=== PATIENT | female | born 1950 | race Caucasian/White ===

== ENCOUNTER 2020-05-11 15:42 | Outpatient (RCR) | payer MEDICARE, BC, SELFPAY ==
[2020-05-11] MEDS: COVID-19 VACC, MRNA(PFIZER)/PF 30 MCG/0.3 ML SYRINGE IM (10:29)
[2020-06-01] MEDS: COVID-19 VACC, MRNA(PFIZER)/PF 30 MCG/0.3 ML SYRINGE IM (10:11)
== END 2020-05-11 23:59 ==
LOC: IMMUN 15:42
PROVIDERS: PCP Internal Medicine; Visit Provider Family Medicine
DX: Z23 Encounter for immunization (principal)
CPT/HCPCS: 0001A; 0002A